=== PATIENT | male | born 1960 | race Caucasian/White ===

== ENCOUNTER 2016-08-07 20:05 | Emergency (ER) | payer BC ==
--- NOTE | ~2016-08-07 | CR170 ---
[facility]. [facility] A Service of [facility] & [facility] RADIOLOGY TEXT RESULTS PATIENT: TATIANA MORAN LOCATION: SED : 58 UNIT #: [id number] AGE: [address]: AVIS LICONA SEX: M ORDER DR: [id number] [place] [id number] MR#: [id number] Acc #: [id number] NAME: TATIANA MORAN : 1960 SEX: M STUDY DATE/TIME: 08/07/2016 19:42 UNIT: SED ROOM: STUDY DESCRIPTION: CR Knee 2 Views Rt Attending Physician: Avis Licona Ordering Physician: Physician Non-Staff Primary Care Physician: Taye Leary Jr., M.D. MEDICAL IMAGING REPORT This report is preliminary unless electronic signature is present. EXAM Right knee 2 views 08/07/2016 HISTORY Right knee pain for 1 month with no known injury. FINDINGS AP and lateral projection of the knee shows smooth articular anatomy without indication of fracture or dislocation at the major weight-bearing surface of the knee. There is no indication of radiopaque foreign body about the knee surface or joint effusion. IMPRESSION Normal right knee. Dictated by... Sandoval Holley M.D. THIS IS AN ELECTRONICALLY VERIFIED REPORT Sandoval Holley M.D. at 08/08/2016 3:30 PM [facility]/preeti TD: 08/08/2016 14:28 JOB #: [id number] MEDICAL IMAGING REPORT
[~2016-08-07 20:05] MED LIST: NO MEDICATIONS
== END 2016-08-07 21:27 | disposition home or self-care (01) ==
LOC: SED 20:05
DX: M25.561 Pain in right knee (principal); G89.29 Other chronic pain; F17.200 Nicotine dependence, unspecified, uncomplicated
CPT/HCPCS: 29530; 73560; 99283